=== PATIENT | male | born 1950 | race Hispanic/Latino ===

== ENCOUNTER 2019-01-18 14:53 | Inpatient (IN) | payer OTHER ==
[~2019-01-18] VITALS: Ht 167.6 cm; Wt 123.4 kg
[~2019-01-18 14:53] MED LIST: CALCIUM CHLORIDE 100 MG/ML 10 ML SYG IVP ONE; HEPARIN SODIUM 1000UNIT/ML 10ML VIAL IV ONE
[2019-01-18 15:19] LABS: BASOPHILS % (AUTO) 0.7 % (0.0-5.0); EOSINOPHILS % (AUTO) 1.8 % (0.0-8.0); MEAN CORPUSCULAR HEMOGLOBIN 31.9 pg (27.0-33.0); MEAN CORPUSCULAR HGB CONC 33.9 g/dL (32.0-36.0); MEAN CORPUSCULAR VOLUME 94.1 fL (79-99); MONOCYTES % (AUTO) 7.3 % (3.0-13.0); NEUTROPHILS % (AUTO) 69.2 % (40.0-77.0); PLATELET COUNT (AUTO) 247 K/uL (130-400); RED BLOOD CELL COUNT(AUTO) 4.79 MIL/uL (4.50-6.20); RED CELL DISTRIBUTION WIDTH 13.7 % (11.0-15.5); WHITE BLOOD COUNT (AUTO) 9.7 K/uL (4.8-10.8)
[2019-01-18] MEDS ORDERED: NITROGLYCERIN 1GM/1 INCH PACKET TD ONE (15:21)
[2019-01-18 15:22] LABS: CREATININE 1.2 mg/dL (0.5-1.5); POTASSIUM 3.9 mmol/L (3.5-5.1)
[2019-01-18 15:27] LABS: ALBUMIN 3.7 g/dL (3.5-5.0); BILIRUBIN,TOTAL 0.5 mg/dL (0.2-1.0)
[2019-01-18 15:53] LABS: B-TYPE NATRIURETIC PEPTIDE 202 pg/mL (0-100)
[2019-01-18 16:01] LABS: PARTIAL THROMBOPLASTIN TIME 31.2 SEC (26.3-35.5); PROTHROMBIN TIME 10.5 SEC (9.6-11.6)
[2019-01-18] MEDS: ASPIRIN 81MG TAB.CHEW PO SCH (19:41)
[2019-01-18] MEDS ORDERED: ASPIRIN 81MG TAB.CHEW ONE (19:56)
--- NOTE | 2019-01-18 21:15 | NUR ---
PT ARRIVED FROM ER. SON AT BEDSIDE. PT IS STABLE, NO DISTRESS NOTED. MINIMAL SOB WHEN AMBULATING. CRUTCHES AT BEDSIDE-STATES USES THEM WHEN HIS KNEES START TO CAUSE PAIN OR ACT UP. LAST BM TODAY. NO WOUNDS. IV PATENT. STATES MINIMAL CHEST PAIN. NOTIFIED DR. FAIRCHILD.
[2019-01-18 21:35] VITALS: BP 112/61
--- NOTE | 2019-01-18 22:00 | NUR ---
NOTIFIED DR. FAIRCHILD THAT PT STATED HE FELT SENSATION OF CHEST PAIN TRYING TO INCREASE. NO PAIN AT THE MOMENT. Addendum: 01/18/19 at 2330 by POPPY DODSON RN RN MD ORDERED NITRO PAST 1/2 INCH Q8 HRS.
[2019-01-18 22:13] LABS: TROPONIN I 0.26 ng/mL (0.00-0.06)
[2019-01-18] MEDS: METOPROLOL TARTRATE 25 MG TAB PO SCH (22:47)
[2019-01-18] MEDS: ATORVASTATIN CALCIUM 40 MG TABLET PO SCH (22:47)
[2019-01-18] MEDS ORDERED: THALITONE PO (23:03)
[2019-01-18] MEDS ORDERED: ISOS10TA2 PO (23:03)
[2019-01-18] MEDS ORDERED: CLOP75TA32 PO (23:03)
[2019-01-18] MEDS ORDERED: ASPI-1197 PO (23:03)
[2019-01-18] MEDS ORDERED: METO25TA6 PO (23:03)
[2019-01-18] MEDS ORDERED: PRAV10TA39 PO (23:03)
[2019-01-18] MEDS ORDERED: ALPR0.255 PO (23:03)
[2019-01-18] MEDS: NITROGLYCERIN 1GM/1 INCH PACKET TD SCH (23:20)
[2019-01-18 23:46] VITALS: BP 103/65
[2019-01-19 03:34] VITALS: BP 104/51
[2019-01-19 04:11] LABS: HEMATOCRIT 41.1 % (42-54); MEAN CORPUSCULAR HEMOGLOBIN 33.2 pg (27.0-33.0); MEAN CORPUSCULAR HGB CONC 35.2 g/dL (32.0-36.0); MEAN CORPUSCULAR VOLUME 94.3 fL (79-99); PLATELET COUNT (AUTO) 223 K/uL (130-400); RED BLOOD CELL COUNT(AUTO) 4.36 MIL/uL (4.50-6.20); RED CELL DISTRIBUTION WIDTH 13.6 % (11.0-15.5); WHITE BLOOD COUNT (AUTO) 7.4 K/uL (4.8-10.8)
[2019-01-19 04:53] LABS: CREATININE 1.3 mg/dL (0.5-1.5); POTASSIUM 3.5 mmol/L (3.5-5.1); TROPONIN I 0.21 ng/mL (0.00-0.06)
[2019-01-19] MEDS: ASPIRIN 81MG TAB.CHEW PO SCH (07:22)
[2019-01-19] MEDS: NITROGLYCERIN 1GM/1 INCH PACKET TD SCH ×2 (07:22→15:26)
[2019-01-19] MEDS: METOPROLOL TARTRATE 25 MG TAB PO SCH ×2 (07:22→20:28)
[2019-01-19 08:00] VITALS: BP 107/67
--- NOTE | 2019-01-19 08:00 | NUR ---
ASSESSMENT PT IS AAOX4 DENIES CP DENIES SOB DENIES NV NO COMPLAINTS RESTING IN BED. AM MEDS GIVEN, CALL LIGHT WITHIN REACH.
--- NOTE | 2019-01-19 11:30 | NUR ---
CINDI FINE SAW PATIENT NO ORDERS RECEIVED AT THIS TIME.
[2019-01-19 11:43] VITALS: BP 120/65
--- NOTE | 2019-01-19 14:52 | NUR ---
DC PLAN VISITED WITH PATIENT. PATIENT LIVES ALONE IN [place] GOES BACK AND FORTH. HE WAS VISITING SON IN [place]. PATIENT HAS CRUTCHES THAT HE USES TO STEADY HIM SELF. HAD BEEN GOING TO HOSPITAL IN [place] FOR SIMILAR ISSUE. FEELS SAFE TO RETURN HOME. FAMILY AVAILABLE TO HELP ON DISCHARGE. Addendum: 01/19/19 at 1455 by JULIO C MIGUEL RN CM Amended: Links added.
[2019-01-19 16:16] VITALS: BP 115/62
[2019-01-19] MEDS ORDERED: SODIUM CHLORIDE 0.9% 500ML 500 ML IV SCH (17:14)
--- NOTE | 2019-01-19 17:30 | NUR ---
REINFORCED VOIDING INTO URINAL FOR MEASUREMENT. STATES HE IS AWARE OF IT SINCE ADMITTED TO FLOOR, BUT HAS BEEN VOIDING IN TOILET. AGREES TO COMPLY WITH VOIDING INTO URINAL FOR MEASUREMENT.
[2019-01-19] MEDS ORDERED: LACTULOSE 20 GM/30 ML UDCUP PO PRN (18:00)
[2019-01-19 19:21] VITALS: BP 129/77
[2019-01-19] MEDS: ATORVASTATIN CALCIUM 40 MG TABLET PO SCH (20:28)
--- NOTE | 2019-01-19 21:00 | NUR ---
CONSENT SINGED FOR LEFT HEAR CATH PROCEDURE. FAMILY MEMBER PRESENT. PT AA03. WILBER.
[2019-01-19] MEDS ORDERED: HYDRALAZINE HCL 20 MG/ML VIAL IV PRN (22:30)
[2019-01-19] MEDS ORDERED: MORPHINE SULFATE 2 MG/ML 1ML SYG IV PRN (22:30)
[2019-01-19 23:29] VITALS: BP 113/68
[2019-01-20] VITALS (10 sets, daily range): BP systolic 112–143; BP diastolic 65–81
[2019-01-20] MEDS: NITROGLYCERIN 1GM/1 INCH PACKET TD SCH ×3 (00:46→23:15)
[2019-01-20 03:31] LABS: BASOPHILS % (AUTO) 0.5 % (0.0-5.0); HEMATOCRIT 45.1 % (42-54); LYMPHOCYTES % (AUTO) 26.6 % (21.0-51.0); MEAN CORPUSCULAR HEMOGLOBIN 32.7 pg (27.0-33.0); MEAN CORPUSCULAR HGB CONC 34.8 g/dL (32.0-36.0); NEUTROPHILS % (AUTO) 62.9 % (40.0-77.0); NUCLEATED RED BLOOD CELLS 0.1 % (0.0-0.19); PLATELET COUNT (AUTO) 253 K/uL (130-400); RED CELL DISTRIBUTION WIDTH 13.6 % (11.0-15.5); WHITE BLOOD COUNT (AUTO) 8.9 K/uL (4.8-10.8)
[2019-01-20 03:50] LABS: B-TYPE NATRIURETIC PEPTIDE 226 pg/mL (0-100)
[2019-01-20 03:54] LABS: CREATININE 1.4 mg/dL (0.5-1.5); TROPONIN I 0.23 ng/mL (0.00-0.06)
--- NOTE | 2019-01-20 07:35 | NUR ---
ASSESSMENT ENCOUNTERED PT A&OX3, CALM COOPERATIVE AND DOES NOT APPEAR TO BE IN ANY DISTRESS NOR ANY NEURO DEFICITS PRESENT. PT DENIES PAIN, SOB, NAUSEA. PT IS NPO FOR [facility] BY DR OLSON. CALL LIGHT WITHIN REACH, FAMILY AT BEDSIDE.
[2019-01-20] MEDS ORDERED: IOHEXOL 350 MG/ML 100ML INFUS..BTL IV ONE (07:40)
[2019-01-20] MEDS ORDERED: HEPARIN SODIUM 1000UNIT/ML 10ML VIAL ONE (07:40)
[2019-01-20] MEDS ORDERED: IOHEXOL-350 50ML VIAL IV ONE (07:40)
[2019-01-20] MEDS ORDERED: NITROGLYCERIN 5 MG/ML 10 ML VIAL IV ONE (07:40)
[2019-01-20] MEDS ORDERED: LIDOCAINE HCL 2% 20ML ONE (07:40)
[2019-01-20] MEDS ORDERED: VERAPAMIL HCL 2.5 MG/ML VIAL ONE (07:41)
[2019-01-20] MEDS ORDERED: MIDAZOLAM HCL 1 MG/ML 2ML VIAL ONE (08:36)
[2019-01-20] MEDS ORDERED: FENTANYL CITRATE PF 50 MCG/1 ML 2ML VIAL ONE (08:37)
[2019-01-20] MEDS ORDERED: BIVALIRUDIN 250 MG/VIAL IV ONE ×2 (08:41→08:43)
[2019-01-20] MEDS ORDERED: ENOXAPARIN SODIUM 40 MG/0.4 ML SYRINGE SQ SCH (09:00)
[2019-01-20] MEDS ORDERED: SODIUM CHLORIDE 0.9% 1000ML 1,000 ML IV SCH (09:08)
--- NOTE | 2019-01-20 09:45 | NUR ---
POST PROCEDURE RADIAL BAND TO LEFT WRIST, SITE DRY AND INTACT, PULSES PALPABLE. BAND TO BE REMOVED PER PROTOCOL. CALL LIGHT WITHIN REACH, FAMILY AT BEDSIDE.
[2019-01-20] MEDS: FAMOTIDINE/PF 20 MG/2 ML VIAL IV SCH ×2 (10:36→20:37)
[2019-01-20] MEDS: METOPROLOL TARTRATE 25 MG TAB PO SCH ×2 (10:36→20:37)
[2019-01-20] MEDS: ASPIRIN 81MG TAB.CHEW PO SCH (10:40)
[2019-01-20] MEDS: ATORVASTATIN CALCIUM 40 MG TABLET PO SCH (20:37)
[2019-01-21 04:03] VITALS: BP 123/76
[2019-01-21 04:25] LABS: BASOPHILS % (AUTO) 0.5 % (0.0-5.0); EOSINOPHILS % (AUTO) 1.8 % (0.0-8.0); HEMATOCRIT 45.5 % (42-54); LYMPHOCYTES % (AUTO) 22.3 % (21.0-51.0); MEAN CORPUSCULAR HEMOGLOBIN 31.8 pg (27.0-33.0); MEAN CORPUSCULAR VOLUME 93.8 fL (79-99); MONOCYTES % (AUTO) 8.2 % (3.0-13.0); NEUTROPHILS % (AUTO) 67.2 % (40.0-77.0); NUCLEATED RED BLOOD CELLS 0.1 % (0.0-0.19); PLATELET COUNT (AUTO) 276 K/uL (130-400); RED BLOOD CELL COUNT(AUTO) 4.85 MIL/uL (4.50-6.20); RED CELL DISTRIBUTION WIDTH 13.2 % (11.0-15.5); WHITE BLOOD COUNT (AUTO) 9.1 K/uL (4.8-10.8)
[2019-01-21 05:01] LABS: CREATININE 1.3 mg/dL (0.5-1.5); POTASSIUM 3.2 mmol/L (3.5-5.1)
[2019-01-21] MEDS ORDERED: LIDOCAINE HCL-MPF 1% 2ML VIAL IVP PRN (07:15)
[2019-01-21] MEDS ORDERED: POTASSIUM CHLORIDE 20 MEQ ERTAB PO PRN (07:15)
[2019-01-21] MEDS ORDERED: POTASSIUM CHLORIDE 10MEQ/100ML 100 ML IV PRN (07:15)
[2019-01-21] MEDS ORDERED: POTASSIUM CHLORIDE 10% ELIXIR 20 MEQ/15 ML UDCUP PO PRN (07:15)
--- NOTE | 2019-01-21 07:35 | NUR ---
ASSESSMENT ENCOUNTERED PT A&OX3, CALM COOPERATIVE AND DOES NOT APPEAR TO BE IN ANY DISTRESS NOR ANY NEURO DEFICITS PRESENT. PT DENIES PAIN, SOB, NAUSEA. PT IS AMBULATORY, GAIT SLOW BUT STEADY WITH ASSIST. LEFT WRIST SITE DRY AND INTACT WITH NO OOZING OR HEMATOMA PRESENT. RADIAL AND ULNAR PULSES PRESENT. CALL LIGHT WITHIN REACH, FAMILY AT BEDSIDE.
[2019-01-21 08:00] VITALS: BP 129/81
[2019-01-21] MEDS: ASPIRIN 81MG TAB.CHEW PO SCH (08:27)
[2019-01-21] MEDS: METOPROLOL TARTRATE 25 MG TAB PO SCH ×2 (08:27→20:31)
[2019-01-21] MEDS: FAMOTIDINE/PF 20 MG/2 ML VIAL IV SCH ×2 (08:27→20:31)
[2019-01-21] MEDS: NITROGLYCERIN 1GM/1 INCH PACKET TD SCH ×3 (08:28→23:45)
[2019-01-21] MEDS ORDERED: POTASSIUM CHLORIDE 20 MEQ ERTAB PO SCH (09:30)
[2019-01-21] MEDS ORDERED: FUROSEMIDE 20 MG TABLET PO SCH (09:30)
[2019-01-21 12:12] VITALS: BP 141/73
[2019-01-21 12:15] LABS: HEMOGLOBIN A1C 5.9 % (4.0-6.0)
[2019-01-21 16:10] VITALS: BP 121/68
[2019-01-21 19:36] VITALS: BP 132/80
[2019-01-21] MEDS: ATORVASTATIN CALCIUM 40 MG TABLET PO SCH (20:30)
[2019-01-21 23:50] VITALS: BP 125/74
[2019-01-22] VITALS (20 sets, daily range): BP systolic 108–149; BP diastolic 46–78
[2019-01-22 03:57] LABS: BASOPHILS % (AUTO) 0.6 % (0.0-5.0); EOSINOPHILS % (AUTO) 1.4 % (0.0-8.0); HEMATOCRIT 45.7 % (42-54); LYMPHOCYTES % (AUTO) 24.1 % (21.0-51.0); MEAN CORPUSCULAR HGB CONC 35.4 g/dL (32.0-36.0); MEAN CORPUSCULAR VOLUME 93.3 fL (79-99); MONOCYTES % (AUTO) 7.9 % (3.0-13.0); NUCLEATED RED BLOOD CELLS 0.2 % (0.0-0.19); PLATELET COUNT (AUTO) 271 K/uL (130-400); RED BLOOD CELL COUNT(AUTO) 4.89 MIL/uL (4.50-6.20); RED CELL DISTRIBUTION WIDTH 13.4 % (11.0-15.5); WHITE BLOOD COUNT (AUTO) 9.5 K/uL (4.8-10.8)
[2019-01-22 04:13] LABS: INR 1.03 (0.85-1.15); PARTIAL THROMBOPLASTIN TIME 30.5 SEC (26.3-35.5); PROTHROMBIN TIME 10.8 SEC (9.6-11.6)
[2019-01-22 04:18] LABS: CREATININE 1.3 mg/dL (0.5-1.5); POTASSIUM 3.6 mmol/L (3.5-5.1)
[2019-01-22] MEDS ORDERED: LIDOCAINE PF 2% 5ML ABBOJECT ONE (07:03)
[2019-01-22] MEDS ORDERED: HEPARIN SODIUM 1000UNIT/ML 10ML VIAL ONE (07:03)
[2019-01-22] MEDS ORDERED: PROTAMINE SULFATE 10 MG/ML 25ML VIAL IV ONE (07:03)
[2019-01-22] MEDS ORDERED: ESMOLOL HCL 10 MG/ML 10 ML VIAL ONE (07:03)
[2019-01-22] MEDS ORDERED: EPINEPHRINE 1 MG/ML AMPULE ONE (07:03)
[2019-01-22] MEDS ORDERED: SODIUM BICARB 50MEQ 50ML VIAL ONE ×3 (07:03→10:38)
[2019-01-22] MEDS ORDERED: AMINOCAPROIC ACID 250 MG/ML 20 ML VIAL IV ONE (07:03)
[2019-01-22] MEDS ORDERED: NOREPINEPHRINE BITARTRATE 1 MG/1 ML ML IV ONE (07:03)
[2019-01-22] MEDS ORDERED: MIDAZOLAM HCL 1 MG/ML 5ML VIAL ONE (07:04)
[2019-01-22] MEDS ORDERED: ROCURONIUM 10MG/1ML SYR 10 MG/ML ML ONE (07:04)
[2019-01-22] MEDS ORDERED: PROPOFOL 10 MG/ML 20ML VIAL IV ONE (07:04)
[2019-01-22] MEDS ORDERED: FENTANYL CITRATE PF 50 MCG/1 ML 20ML VIAL IJ ONE (07:04)
[2019-01-22] MEDS ORDERED: ETOMIDATE 2 MG/ML 10 ML VIAL ONE (07:05)
[2019-01-22] MEDS ORDERED: AMIODARONE HCL 50 MG/ML 3 ML VIAL ONE (07:06)
[2019-01-22] MEDS ORDERED: VASOPRESSIN 20 UNITS/ML 1ML VIAL ONE (07:07)
[2019-01-22] MEDS ORDERED: PAPAVERINE HCL 30 MG/ML 2ML VIAL ONE (07:07)
[2019-01-22] MEDS ORDERED: BACITRACIN 50,000 UNIT VIAL ONE (07:07)
[2019-01-22] MEDS ORDERED: NITROGLYCERIN 50 MG/D5% WATER 1 BOT ONE (07:21)
[2019-01-22] MEDS ORDERED: EPINEPHRINE 1 MG/ML 30ML VIAL IJ ONE (07:21)
[2019-01-22] MEDS ORDERED: CEFAZOLIN SODIUM 1 GM VIAL IVP PRN (07:30)
[2019-01-22] MEDS ORDERED: CEFUROXIME SODIUM 1.5 GM VIAL ONE ×2 (07:50→11:51)
[2019-01-22] MEDS ORDERED: THROMBIN-JMI 5000 UNIT/VIAL TP ONE (07:50)
[2019-01-22 08:30] LABS: ABG BASE EXCESS 1.1 mmol/L (-2.0-3.0); ABG HCO3 24.8 mmol/L (21.0-28.0); ABG OXYGEN SATURATION 99.4 % (95.0-99.0); ABG PCO2 37 mmHg (35-48)
[2019-01-22 09:37] LABS: ABG BASE EXCESS 2.1 mmol/L (-2.0-3.0); ABG HCO3 25.5 mmol/L (21.0-28.0); ABG OXYGEN SATURATION 99.4 % (95.0-99.0); ABG PCO2 36 mmHg (35-48)
[2019-01-22] MEDS ORDERED: POTASSIUM CHLORIDE 20MEQ/100ML 300 ML IV ONE ×3 (09:44→11:49)
[2019-01-22] MEDS ORDERED: ALBUMIN (HUMAN) 5% 500 ML IV ONE (09:52)
[2019-01-22] MEDS ORDERED: LIDOCAINE HCL-MPF 1% 5ML AMP IJ ONE ×2 (10:27)
[2019-01-22 10:28] LABS: ABG BASE EXCESS 0.5 mmol/L (-2.0-3.0); ABG HCO3 23.9 mmol/L (21.0-28.0); ABG OXYGEN SATURATION 98.8 % (95.0-99.0); ABG PCO2 35 mmHg (35-48)
[2019-01-22] MEDS ORDERED: ATROPINE SULFATE 0.1 MG/ML 10 ML SYG IVP ONE (10:47)
[2019-01-22 11:00] LABS: ABG BASE EXCESS 1.5 mmol/L (-2.0-3.0); ABG HCO3 25.1 mmol/L (21.0-28.0); ABG OXYGEN SATURATION 98.9 % (95.0-99.0); ABG PCO2 36 mmHg (35-48)
[2019-01-22 11:05] LABS: ABG BASE EXCESS 2.7 mmol/L (-2.0-3.0); ABG HCO3 26.4 mmol/L (21.0-28.0); ABG OXYGEN SATURATION 99.1 % (95.0-99.0); ABG PCO2 37 mmHg (35-48)
[2019-01-22 11:48] LABS: ABG BASE EXCESS 2.8 mmol/L (-2.0-3.0); ABG HCO3 27.4 mmol/L (21.0-28.0); ABG PCO2 42 mmHg (35-48)
[2019-01-22] MEDS ORDERED: ALBUMIN (HUMAN) 5% 250 ML IV ONE (12:00)
[2019-01-22] MEDS ORDERED: FENTANYL CITRATE PF 50 MCG/1 ML 2ML VIAL ONE ×3 (12:10→12:13)
[2019-01-22] MEDS ORDERED: SODIUM CHLORIDE 0.9% 500ML 500 ML IV SCH (12:13)
[2019-01-22] MEDS ORDERED: ONDANSETRON HCL 4 MG/2 ML VIAL IV PRN (12:15)
[2019-01-22] MEDS ORDERED: SODIUM CHLORIDE 0.9% 10 ML VIAL IVP PRN (12:15)
[2019-01-22] MEDS ORDERED: PROPOFOL 1000 MG/100 ML 100 ML IV PRN (12:15)
[2019-01-22] MEDS ORDERED: SODIUM BICARB 50MEQ 50ML VIAL IV PRN (12:15)
[2019-01-22] MEDS ORDERED: ACETAMINOPHEN 650 MG SUPPOSITORY RC PRN (12:15)
[2019-01-22] MEDS ORDERED: AMINOCAPROIC ACID 15,000 MG in SODIUM CHLORIDE 0.9% 250 ML IV SCH (12:15)
[2019-01-22] MEDS ORDERED: ACETAMINOPHEN 325 MG TAB PO PRN (12:15)
[2019-01-22] MEDS ORDERED: NOREPINEPHRINE 4MG/NS 250ML 250 ML IV PRN (12:15)
[2019-01-22] MEDS ORDERED: SODIUM CHLORIDE 0.9% 250 ML IV PRN (12:15)
[2019-01-22] MEDS ORDERED: MORPHINE SULFATE 2 MG/ML 1ML SYG IV PRN (12:15)
[2019-01-22] MEDS ORDERED: GLUCAGON 1MG KIT 1 MG ML IM PRN (12:15)
[2019-01-22] MEDS ORDERED: SODIUM CHLORIDE 0.9% 1000ML 1,000 ML IV SCH (12:15)
[2019-01-22] MEDS ORDERED: EPINEPHRINE 8 MG in DEXTROSE 5%-WATER 250 ML IV PRN (12:15)
[2019-01-22] MEDS ORDERED: MORPHINE SULFATE 4 MG/1ML SYG IV PRN (12:15)
[2019-01-22] MEDS ORDERED: POTASSIUM PHOS 15 mMOL+NS250ML 250 ML IV PRN (12:15)
[2019-01-22] MEDS ORDERED: ALBUMIN (HUMAN) 5% 250 ML IV PRN (12:15)
[2019-01-22] MEDS ORDERED: NITROGLYCERIN 50 MG/D5% WATER 250 BOT IV SCH (12:15)
[2019-01-22] MEDS ORDERED: DEXTROSE 50%-WATER 50 ML DISP.SYRIN IV PRN (12:15)
[2019-01-22 12:31] LABS: ABG BASE EXCESS -3.5 mmol/L (-2.0-3.0); ABG HCO3 21.7 mmol/L (21.0-28.0); ABG OXYGEN SATURATION 98.9 % (95.0-99.0); ABG PCO2 39 mmHg (35-48)
[2019-01-22] MEDS ORDERED: SODIUM BICARB 8.4% 50ML SYRINGE ONE (12:38)
--- NOTE | 2019-01-22 13:05 | NUR ---
POST OP ASSESSMENT Received immediately post op. Orally intubated - sedated. Additional meds administered upon arrival by . Vent settings as recorded. SR on tele - strong apical heart tones. VS/hemodynamics as recorded. Received pt on IV levophed gtt @1mcg/min, epinephrine gtt @0.03mcg/kg/min, amicar @50ml/hr. Sternal drsg clean and dry. CT's x2 patent - MS, left pleural - Y connected to single atrium. No evidence of air leak - no crepitus. CT's to 20cm suction - sanguineous drainage. Abd obese - soft - absent bowel sounds. OGT placement verified per routine - placed to LIS. F/C patent. SUKI bandage/surgical drsgs to LLE dry, intact. Pedal pulses palpable bilaterally. Right IJ CVP line in use. Left radial arterial line patent. Pt arrived with PIV x2 in place - LH and LW. 22ga to LH occluded/discontinued. 20ga to LW patent with good blood return - flushed with NS. 22g PIV inserted to YAZMIN x1 attempt using aseptic technique. Assessment completed/recorded. Routine post op orders noted/carried out.
[2019-01-22 13:41] LABS: ABG BASE EXCESS -0.4 mmol/L (-2.0-3.0); ABG HCO3 24.9 mmol/L (21.0-28.0); ABG OXYGEN SATURATION 97.3 % (95.0-99.0); ABG PCO2 43 mmHg (35-48)
[2019-01-22 13:49] LABS: HEMATOCRIT 38.9 % (42-54); MEAN CORPUSCULAR HEMOGLOBIN 32.1 pg (27.0-33.0); MEAN CORPUSCULAR HGB CONC 34.2 g/dL (32.0-36.0); MEAN CORPUSCULAR VOLUME 93.8 fL (79-99); PLATELET COUNT (AUTO) 287 K/uL (130-400); RED BLOOD CELL COUNT(AUTO) 4.15 MIL/uL (4.50-6.20); RED CELL DISTRIBUTION WIDTH 13.8 % (11.0-15.5); WHITE BLOOD COUNT (AUTO) 22.4 K/uL (4.8-10.8)
--- NOTE | 2019-01-22 14:00 | NUR ---
FAMILY UPDATE Pt's family members in to see pt - updated. Pt's son, Jordan, is spokesperson. [facility] phone number provided to him. Questions addressed. Discussed routine post op plan of care. Made aware of [facility]/ICU visitation policy. Pt arousable with tactile stimulation but is not yet appropriate to begin weaning from vent. Pt reassured - attempts made to reorient.
[2019-01-22 14:02] LABS: INR 1.16 (0.85-1.15); PARTIAL THROMBOPLASTIN TIME 25.9 SEC (26.3-35.5); PROTHROMBIN TIME 12.1 SEC (9.6-11.6)
[2019-01-22 14:05] LABS: CREATININE 1.1 mg/dL (0.5-1.5); MAGNESIUM 1.4 mg/dL (1.80-2.40); PHOSPHORUS 4.2 mg/dL (2.5-4.9); POTASSIUM 3.9 mmol/L (3.5-5.1)
[2019-01-22] MEDS: POTASSIUM CHLORIDE 20MEQ/100ML 100 ML IV PRN (14:36)
[2019-01-22] MEDS: INSULIN REGULAR, HUMAN 3ML 100 UNIT in SODIUM CHLORIDE 0.9% 99 ML IV SCH ×2 (14:38)
--- NOTE | 2019-01-22 15:42 | NUR ---
STATUS Drowsy but arousable. Follows commands. Reoriented/reassured. Pt does not maintain adequate level of arousal to proceed with vent weaning. Pt is in no apparent distress.
[2019-01-22 15:43] LABS: ABG BASE EXCESS 0.3 mmol/L (-2.0-3.0); ABG HCO3 25.6 mmol/L (21.0-28.0); ABG OXYGEN SATURATION 96.1 % (95.0-99.0); ABG PCO2 44 mmHg (35-48)
[2019-01-22] MEDS: MAGNESIUM 2GM PREMIX 50ML 50 ML IV PRN (16:33)
[2019-01-22] MEDS: CEFAZOLIN SODIUM 1 GM VIAL IV SCH (16:40)
--- NOTE | 2019-01-22 16:55 | NUR ---
STATUS AA - tachypneic. Attempts made to reassure pt. Pt does not acknowledge understanding. Expresses presence of incisional pain - reassured. Unable to leave pt bedside - relief not available and tramadol not available in [facility] omnicell. Spoke to pharmacy associate to resolve.
[2019-01-22] MEDS: TRAMADOL HCL 50 MG TABLET PO PRN ×2 (17:09→23:06)
[2019-01-22 17:30] LABS: ABG BASE EXCESS -0.1 mmol/L (-2.0-3.0); ABG HCO3 25.5 mmol/L (21.0-28.0); ABG OXYGEN SATURATION 97.6 % (95.0-99.0); ABG PCO2 45 mmHg (35-48)
--- NOTE | 2019-01-22 17:35 | NUR ---
EXTUBATION ABG's, weaning parameters within acceptable range. Pt extubated to aerosol mask per protocol. Post extubation instructions given to pt by Araseli
[2019-01-22 19:16] LABS: ABG BASE EXCESS 1.4 mmol/L (-2.0-3.0); ABG HCO3 28.1 mmol/L (21.0-28.0); ABG OXYGEN SATURATION 95.3 % (95.0-99.0); ABG PCO2 52 mmHg (35-48)
--- NOTE | 2019-01-22 19:20 | NUR ---
DR. MILAGROS LINARES UPDATED ON PT STATUS GIVEN LATEST ABG RESULTS PT WITH CONTINUED PAIN. NEW ORDER FOR NEBULIZER TREATMENT AND CPT GIVEN.
[2019-01-22] MEDS ORDERED: IPRATROPIUM/ALBUTEROL SULFATE 3 ML SOLUTION IH ONE (19:34)
--- NOTE | 2019-01-22 19:38 | NUR ---
DR. MILAGROS LINARES CALLED BACK AT THIS TIME TO CHECK ON PT UPDATED ON PT STATUS. NEW ORDERS FOR IV TYLENOL GIVEN IF NOT AVAILABLE TO GIVE 15MG TORADOL IV X 1 DOSE.
[2019-01-22] MEDS ORDERED: KETOROLAC TROMETHAMINE 15MG/ML ONE (19:42)
--- NOTE | 2019-01-22 19:42 | NUR ---
PHARMACY CALLED PHARMACY SPOKE WITH MADDIE THEY DO NOT CARRY IV TYLENOL ORDER FOR TORADOL PLACED
[2019-01-22] MEDS: ATORVASTATIN CALCIUM 40 MG TABLET PO SCH (20:19)
[2019-01-22] MEDS ORDERED: KETOROLAC TROMETHAMINE 15MG/ML IV SCH (20:45)
[2019-01-22] MEDS ORDERED: FAMOTIDINE/PF 20 MG/2 ML VIAL IV SCH (21:00)
[2019-01-22 21:42] LABS: ABG BASE EXCESS 3.4 mmol/L (-2.0-3.0); ABG HCO3 29.3 mmol/L (21.0-28.0); ABG OXYGEN SATURATION 97.2 % (95.0-99.0); ABG PCO2 49 mmHg (35-48)
[2019-01-22 22:03] LABS: CREATININE 1.2 mg/dL (0.5-1.5); MAGNESIUM 2.2 mg/dL (1.80-2.40); POTASSIUM 4.5 mmol/L (3.5-5.1)
[2019-01-22] MEDS: IPRATROPIUM/ALBUTEROL SULFATE 3 ML SOLUTION IH PRN (23:51)
[2019-01-23] VITALS (27 sets, daily range): BP systolic 97–175; BP diastolic 46–90
[2019-01-23] MEDS: CEFAZOLIN SODIUM 1 GM VIAL IV SCH ×2 (00:40→08:22)
[2019-01-23 04:29] LABS: ABG BASE EXCESS 1.9 mmol/L (-2.0-3.0); ABG HCO3 27.4 mmol/L (21.0-28.0); ABG OXYGEN SATURATION 97.1 % (95.0-99.0); ABG PCO2 46 mmHg (35-48)
[2019-01-23 04:29] LABS: BASOPHILS % (AUTO) 0.3 % (0.0-5.0); HEMATOCRIT 39.2 % (42-54); MEAN CORPUSCULAR HGB CONC 33.9 g/dL (32.0-36.0); MEAN CORPUSCULAR VOLUME 94.2 fL (79-99); MONOCYTES % (AUTO) 7.8 % (3.0-13.0); NEUTROPHILS % (AUTO) 85.9 % (40.0-77.0); PLATELET COUNT (AUTO) 240 K/uL (130-400); RED BLOOD CELL COUNT(AUTO) 4.16 MIL/uL (4.50-6.20); RED CELL DISTRIBUTION WIDTH 13.8 % (11.0-15.5); WHITE BLOOD COUNT (AUTO) 13.8 K/uL (4.8-10.8)
[2019-01-23 04:45] LABS: CREATININE 1.2 mg/dL (0.5-1.5); MAGNESIUM 1.9 mg/dL (1.80-2.40); PHOSPHORUS 4.1 mg/dL (2.5-4.9); POTASSIUM 4.1 mmol/L (3.5-5.1)
[2019-01-23] MEDS ORDERED: CALCIUM GLUCONATE 1 GM/10 ML VIAL IV ONE (04:49)
[2019-01-23 04:53] LABS: INR 1.09 (0.85-1.15); PARTIAL THROMBOPLASTIN TIME 30.1 SEC (26.3-35.5); PROTHROMBIN TIME 11.4 SEC (9.6-11.6)
[2019-01-23] MEDS: CALCIUM GLUCONATE 1 GM in SODIUM CHLORIDE 0.9% 50 ML IV PRN (04:53)
[2019-01-23] MEDS: MAGNESIUM 2GM PREMIX 50ML 50 ML IV PRN (06:01)
[2019-01-23] MEDS: IPRATROPIUM/ALBUTEROL SULFATE 3 ML SOLUTION IH PRN ×4 (06:58→23:05)
--- NOTE | 2019-01-23 08:00 | NUR ---
PT RECEIVED IN BED, AAOX3, NO ACUTE DISTRESS NOTED, PT IN CARDIAC CHAIR. PT IS POD #1 CABG x4. STERNAL DRESSING AND CHEST TUBE DRESSING ARE BOTH D/I. 2 CHEST TUBES TO 1 ATRIUM WITH LEVEL 370ML SEROSANGUINEOUS OUTPUT. LET RADIAL A-LINE NOTED, ZEROED AND LEVELED. TEDS ON BILATERAL LE, F/C DRAINING WELL WITH BLADDER TEMP. PER REPORT, URINE OUTPUT HAS BEEN LOW. TELE WITH 60s SR,NO ECTOPY. POC DISCUSSED WITH PATIENT. ENCOURAGED IS THERAPY, CURRENTLY AT 500ML MARTINEZ. ENCOURAGED TO COUGH AND DEEP BREATH AND SPLINTING CARDIAC PILLOW. PT ASKED WHEN WILL HE BE ABLE TO GO BACK TO BED. I INFORMED HIM THAT GOAL OF THERAPY IS TO BE OUT OF BED THROUGHOUT THE DAY AND AT NIGHT BACK TO BED. INFORMED HIM THAT PHYSICAL THERAPY WILL BE IN TO WORK WITH HIM TODAY. PT VOICED AGREEMENT. WILL CONT TO MONITOR CLOSELY. Addendum: 01/23/19 at 1025 by KATHY WOOD RN RN Amended: Links added.
[2019-01-23] MEDS: TRAMADOL HCL 50 MG TABLET PO PRN ×2 (08:21→18:33)
[2019-01-23] MEDS: FAMOTIDINE 20MG TAB 20 MG TAB PO SCH (08:21)
[2019-01-23] MEDS: ASPIRIN 325MG EC TAB 325 MG TABLET.DR PO SCH (08:21)
--- NOTE | 2019-01-23 09:00 | NUR ---
SHERINE SEGUNDO, VEGETABLE FARM WORKER IN TO SEE PATIENT. NEW ORDERS RECEIVED TO BE CARRIED OUT.
[2019-01-23] MEDS ORDERED: FUROSEMIDE 10 MG/ML 2ML VIAL IV SCH (09:40)
--- NOTE | 2019-01-23 10:30 | NUR ---
ROUNDS DR. BOBBY WOOD IN TO SEE PATIENT. MD NOTED ELEVATED BP, NEW ORDERS WERE RECEIVED FOR BLOOD PRESSURE CONTROL. UPDATED ON NEW ORDERS FROM HOSPITALIST.
--- NOTE | 2019-01-23 10:31 | NUR ---
PATIENT'S SON ARRIVED FOR VISIT. INSTRUCTED ON NOT OVER STIMULATING PATIENT, ENCOURAGED RELAXATION TO BETTER CONTROL BLOOD PRESSURE. PT TO CONT WITH COUGH AND DEEP BREATHING WELL IS THERAPY.
[2019-01-23] MEDS ORDERED: ALPRAZOLAM 0.25 MG TABLET PO PRN (11:00)
[2019-01-23] MEDS: INSULIN REGULAR, HUMAN 3ML 100 UNIT in SODIUM CHLORIDE 0.9% 99 ML IV SCH ×2 (11:05)
[2019-01-23] MEDS: LISINOPRIL 10 MG TABLET PO SCH (11:31)
[2019-01-23] MEDS: METOPROLOL TARTRATE 25 MG TAB PO SCH ×2 (11:31→21:05)
--- NOTE | 2019-01-23 13:37 | NUR ---
MD ROUNDS DR. COOK IN TO SEE PATIENT.
--- NOTE | 2019-01-23 15:28 | NUR ---
MD ROUNDS DR. LINARES IN TO SEE PATIENT. MD UPDATED ON STATUS, CT OUTPUT AND F/C OUTPUT SINCE THIS MORNING. UPDATED ON NEW ORDERS FROM DR. BOBBY WOOD AND HOSPITALIST. NEW ORDERS RECEIVED TO BE CARRIED OUT.
--- NOTE | 2019-01-23 19:20 | NUR ---
ASSESSMENT; REPORT RECEIVED. PATIENT AA0X3, FOLLOWS COMMANDS, STRONG X 4 WITH EQUAL HAND GRASPS , SANGE[place]HA 3, EQUAL , LUNGS CLEAR WITH SOME CRACKLES TO BASES. 02 2L NC , HIDALGO PATENT TO BSD. SURGICAL CHEST DRESSING INTACT. PATIENT TRANSFERRED FROM CHAIR TO BED WITH ASSISTANCE. EDUCATION PROVIDED REGARDING REMOVAL OF CHEST TUBES. X 2 CHEST TUBES DC'D , SUTURES SECURED , COVERED WITH 4X4 AND HYPAFIX TAPE. PATIENT TOLERATED PROCDURE WELL.
[2019-01-23] MEDS ORDERED: FAMOTIDINE 20MG TAB 20 MG TAB PO SCH (21:00)
[2019-01-23] MEDS: ATORVASTATIN CALCIUM 40 MG TABLET PO SCH (21:05)
[2019-01-24] VITALS (25 sets, daily range): BP systolic 98–145; BP diastolic 45–91
[2019-01-24 04:02] LABS: HEMATOCRIT 35.9 % (42-54); MEAN CORPUSCULAR HEMOGLOBIN 32.3 pg (27.0-33.0); MEAN CORPUSCULAR VOLUME 94.9 fL (79-99); PLATELET COUNT (AUTO) 192 K/uL (130-400); RED BLOOD CELL COUNT(AUTO) 3.78 MIL/uL (4.50-6.20); RED CELL DISTRIBUTION WIDTH 13.6 % (11.0-15.5); WHITE BLOOD COUNT (AUTO) 12.7 K/uL (4.8-10.8)
[2019-01-24 04:14] LABS: POTASSIUM 3.4 mmol/L (3.5-5.1)
[2019-01-24] MEDS: TRAMADOL HCL 50 MG TABLET PO PRN ×2 (05:44→18:21)
[2019-01-24] MEDS: IPRATROPIUM/ALBUTEROL SULFATE 3 ML SOLUTION IH PRN ×3 (06:53→19:04)
[2019-01-24] MEDS: POTASSIUM CHLORIDE 20MEQ/100ML 100 ML IV PRN (06:53)
[2019-01-24] MEDS ORDERED: FUROSEMIDE 20 MG TABLET PO SCH (09:00)
[2019-01-24] MEDS: LISINOPRIL 10 MG TABLET PO SCH (09:23)
[2019-01-24] MEDS: ASPIRIN 325MG EC TAB 325 MG TABLET.DR PO SCH (09:23)
[2019-01-24] MEDS: FAMOTIDINE 20MG TAB 20 MG TAB PO SCH (09:23)
[2019-01-24] MEDS: METOPROLOL TARTRATE 25 MG TAB PO SCH ×2 (09:24→21:20)
[2019-01-24] MEDS ORDERED: POTASSIUM CHLORIDE 10 MEQ/TAB.SA PO SCH (09:45)
--- NOTE | 2019-01-24 15:00 | NUR ---
D/C HIDALGO HIDALGO REMOVAL PROCEDURE EXPLAINED. 9 ML OF NS REMOVED FROM [place], PATIENT ASKED TO TAKE DEEP BREATH AND CATHETER REMOVED WITHOUT DIFFICULTY. URINAL PROVIDED AND PLACED NEXT TO PATIENT AND ADVISED THAT HE WILL BE NEED TO URINATE IN 8 HOURS. WILL CONTINUE TO MONITOR
[2019-01-24] MEDS: INSULIN HUMULIN R 100 UNIT/ML 3ML SQ SCH ×2 (15:53→20:37)
[2019-01-24] MEDS: ENOXAPARIN SODIUM 40 MG/0.4 ML SYRINGE SQ SCH (15:57)
[2019-01-24] MEDS: ATORVASTATIN CALCIUM 40 MG TABLET PO SCH (21:19)
[2019-01-24] MEDS: GUAIFENESIN 600 MG TABLET.ER PO SCH (21:19)
[2019-01-25] VITALS (17 sets, daily range): BP systolic 104–161; BP diastolic 47–86
--- NOTE | 2019-01-25 04:00 | NUR ---
D/C CENTRAL LINE RIGHT IJ D/C'D. PRESSURE HELD X15MIN. STERILE DRSG APPLIED. TOLERATED WITHOUT DIFFICULTY
[2019-01-25] MEDS: TRAMADOL HCL 50 MG TABLET PO PRN (04:08)
[2019-01-25 04:13] LABS: BASOPHILS % (AUTO) 0.2 % (0.0-5.0); EOSINOPHILS % (AUTO) 0.6 % (0.0-8.0); HEMATOCRIT 33.8 % (42-54); LYMPHOCYTES % (AUTO) 15.2 % (21.0-51.0); MEAN CORPUSCULAR HGB CONC 33.8 g/dL (32.0-36.0); MEAN CORPUSCULAR VOLUME 94.6 fL (79-99); PLATELET COUNT (AUTO) 190 K/uL (130-400); RED BLOOD CELL COUNT(AUTO) 3.57 MIL/uL (4.50-6.20); RED CELL DISTRIBUTION WIDTH 13.6 % (11.0-15.5)
[2019-01-25 04:29] LABS: ALBUMIN 2.6 g/dL (3.5-5.0); BILIRUBIN,TOTAL 0.9 mg/dL (0.2-1.0); POTASSIUM 3.6 mmol/L (3.5-5.1); TOTAL PROTEIN, SERUM 5.9 g/dL (6.0-8.3)
[2019-01-25] MEDS: INSULIN HUMULIN R 100 UNIT/ML 3ML SQ SCH ×3 (05:54→16:30)
[2019-01-25] MEDS: IPRATROPIUM/ALBUTEROL SULFATE 3 ML SOLUTION IH PRN ×2 (07:03→18:13)
[2019-01-25] MEDS ORDERED: POTASSIUM CHLORIDE 10 MEQ/TAB.SA PO SCH (09:00)
[2019-01-25] MEDS ORDERED: FUROSEMIDE 20 MG TABLET PO SCH (09:00)
[2019-01-25] MEDS ORDERED: ASPIRIN 81MG TAB.CHEW PO SCH (09:00)
[2019-01-25] MEDS: FAMOTIDINE 20MG TAB 20 MG TAB PO SCH (09:10)
[2019-01-25] MEDS: METOPROLOL TARTRATE 25 MG TAB PO SCH (09:11)
[2019-01-25] MEDS: LISINOPRIL 10 MG TABLET PO SCH (09:11)
[2019-01-25] MEDS: GUAIFENESIN 600 MG TABLET.ER PO SCH (09:11)
[2019-01-25] MEDS: ENOXAPARIN SODIUM 40 MG/0.4 ML SYRINGE SQ SCH (09:13)
[2019-01-25] MEDS ORDERED: LISI10TA7 PO (16:34)
[2019-01-25] MEDS ORDERED: ATOR40TA69 PO (16:34)
[2019-01-25] MEDS ORDERED: ASPI-1005 PO (16:34)
[2019-01-25] MEDS ORDERED: METO25 PO (16:34)
[2019-01-25] MEDS ORDERED: FURO20TA6 PO (16:34)
[2019-01-25] MEDS ORDERED: TRAM50TA4 PO (16:34)
--- NOTE | 2019-01-25 19:55 | NUR ---
GIVEN DISMISSAL INSTRUCTIONS IN [place] TO PATIENT AND HIS SON CLAUDIA ELAM---VERBALIZED UNDERSTANDING. GIVEN HAND WRITTEN SCRIPTS TO PATIENT.
== END 2019-01-25 20:17 | disposition home or self-care (01) | DRG 233 ==
LOC: EDBD 14:53 → EDH 14:53 → OBSVTOIN 15:53 → EDHIP 15:53 → 2AH 21:08 → 2CV 01-22 08:37 → 2BH 01-23 03:32
PROVIDERS: ADMIT Internal Medicine; ATTEND Internal Medicine
PROC: 4A023N7 Measurement of Cardiac Sampling and Pressure, Left Heart, Percutaneous Approach (ICD-10-PCS; principal; 2019-01-20)
PROC: B2111ZZ Fluoroscopy of Multiple Coronary Arteries using Low Osmolar Contrast (ICD-10-PCS; 2019-01-20)
PROC: B2151ZZ Fluoroscopy of Left Heart using Low Osmolar Contrast (ICD-10-PCS; 2019-01-20)
PROC: 06BQ4ZZ Excision of Left Saphenous Vein, Percutaneous Endoscopic Approach (ICD-10-PCS; 2019-01-22)
PROC: 0BH17EZ Insertion of Endotracheal Airway into Trachea, Via Natural or Artificial Opening (ICD-10-PCS; 2019-01-22)
PROC: 5A1935Z Respiratory Ventilation, Less than 24 Consecutive Hours (ICD-10-PCS; 2019-01-22)
PROC: 02100Z9 Bypass Coronary Artery, One Artery from Left Internal Mammary, Open Approach (ICD-10-PCS; 2019-01-22 07:56)
PROC: 021209W Bypass Coronary Artery, Three Arteries from Aorta with Autologous Venous Tissue, Open Approach (ICD-10-PCS; 2019-01-22 07:56)
DX: I25.110 Atherosclerotic heart disease of native coronary artery with unstable angina pectoris (principal); I50.43 Acute on chronic combined systolic (congestive) and diastolic (congestive) heart failure; I22.9 Subsequent ST elevation (STEMI) myocardial infarction of unspecified site; I21.9 Acute myocardial infarction, unspecified; Z68.41 Body mass index [BMI] 40.0-44.9, adult; D62 Acute posthemorrhagic anemia; I11.0 Hypertensive heart disease with heart failure; E78.5 Hyperlipidemia, unspecified; E66.01 Morbid (severe) obesity due to excess calories; E87.6 Hypokalemia; I25.5 Ischemic cardiomyopathy; Z79.84 Long term (current) use of oral hypoglycemic drugs; Z79.82 Long term (current) use of aspirin; Z79.899 Other long term (current) drug therapy; Z87.891 Personal history of nicotine dependence
CPT/HCPCS: 36415; 71045; 80048; 80053; 80061; 82330; 82435; 82550; 82803; 82947; 82948; 83036; 83605; 83735; 83874; 83880; 84100; 84132; 84295; 84484; 85018; 85025; 85027; 85347; 85610; 85730; 86850; 86900; 86901; 86922; 93005; 93306; 93458; 93880; 94002; 94010; 94150; 94640; 94664; 94667; 94668; 97039; 99156; 99157; A7048; C1769; G0378; J0171; J0282; J0461; J0583; J0610; J0690; J0697; J1644; J1650; J1815; J1885; J1940; J2001; J2250; J2440; J2704; J2720; J3010; J3475; J3480; J3490; J7030; J7040; P9045; Q9967